=== PATIENT | female | born 1975 | race African-American/Black ===

== ENCOUNTER 2024-07-02 04:02 | Day surgery (SDC) | payer OTHER ==
[2024-06-28 10:46] VITALS: BMI 32.4
[2024-07-02] MEDS ORDERED: PROPOFOL 20 ML ONE (07:22)
[2024-07-02] MEDS ORDERED: DEXAMETHASONE SOD PHOSPHATE 4 MG/1 ML VIAL ONE (07:22)
[2024-07-02] MEDS ORDERED: MIDAZOLAM HCL 2 MG/2 ML SINGLE DOSE VIAL ONE (07:22)
[2024-07-02] MEDS ORDERED: LIDOCAINE HCL/PF 2% SDV 5ML VIAL ONE (07:22)
[2024-07-02] MEDS ORDERED: ONDANSETRON 4 MG/2 ML VIAL ONE (07:22)
[2024-07-02] MEDS ORDERED: IBUPROFEN 600 MG TABLET (FP) PO PRN (08:06)
[2024-07-02] MEDS ORDERED: oxyCODONE HCL 5 MG TABLET PO PRN ×2 (08:06→09:05)
[2024-07-02] MEDS ORDERED: ONDANSETRON 4 MG/2 ML VIAL IVPUSH PRN ×2 (08:06→09:05)
[2024-07-02] MEDS ORDERED: IBUPROFEN 800 MG/8 ML IJ IVPB PRN (08:06)
[2024-07-02] MEDS ORDERED: ELECTROLYTE-148 SOLN 1,000 ML IV SCH (08:15)
[2024-07-02] MEDS: SILVER NITRATE 75% APPLIC STCK 1 PKT EACH TP ONE (08:36)
[2024-07-02] MEDS: ACETAMINOPHEN 1000 MG/100 ML BAG IVPB ONE (09:10)
[2024-07-02] MEDS ORDERED: LACTATED RINGERS SOLUTION 1,000 ML IV SCH (09:15)
[2024-07-02 09:24] VITALS: RESP 18
[2024-07-02 11:11] VITALS: BP 142/88; PULSE 62; TEMP 97.6
== END 2024-07-02 11:00 | disposition home or self-care (01) ==
LOC: JASU-SURG 04:02
PROVIDERS: ATTEND Obstetrics & Gynecology
PROC: 0UDB8ZX Extraction of Endometrium, Via Natural or Artificial Opening Endoscopic, Diagnostic (ICD-10-PCS; 2024-07-02)
PROC: 0UB98ZZ Excision of Uterus, Via Natural or Artificial Opening Endoscopic (ICD-10-PCS; principal; 2024-07-02 07:30)
DX: N84.0 Polyp of corpus uteri (principal); N85.00 Endometrial hyperplasia, unspecified
CPT/HCPCS: 88305-TC; 88341-TC; 88342-TC; 94760; J0131

== ENCOUNTER 2024-07-03 17:44 | Emergency (ER) | payer OTHER ==
[2024-07-03 18:24] VITALS: BP 128/84; PULSE 72; RESP 18; TEMP 98.6; BMI 32.5
== END 2024-07-03 22:15 | disposition home or self-care (01) ==
LOC: JER 17:44
DX: M79.662 Pain in left lower leg (principal)
CPT/HCPCS: 93971-TC; 99284-25